=== PATIENT | female | born 1995 | race African-American/Black ===

== ENCOUNTER 2024-01-28 21:40 | Emergency (ER) | payer OTHER ==
[~2024-01-28] VITALS: Ht 177.8 cm; Wt 50.0 kg
[~2024-01-28 21:40] MED LIST: ACET500T58 PO; BACDST PO; ZOFR4T PO
--- NOTE | 2024-01-28 22:04 | ED.PDOC ---
GI ASSESSMENT HPI Comments 28 year old female who came to ER for abdominal pain. Patient states as of 3:00 p.m., she developed right lower quadrant abdominal pain, aching, sharp, constant, tender to touch, associated with bouts of nausea, vomiting, and loose nonbloody diarrhea. Patient denies any history of abdominal surgeries. Denies any possibility of due to her control pills. Chief Complaint: Abdominal Pain Time Seen by MD: 22:01 Primary Care Provider: UNKNOWN Reviewed Notes: Nurses Notes Allergies: Coded Allergies: NO KNOWN ALLERGIES (Unverified , 09/29/23) Home Meds Active Scripts Acetaminophen (Acetaminophen) 500 Mg Tab, 500 MG PO Q4HPRN, #30 TAB 0 Refills Prov:SHIRA PARKER 09/29/23 Ondansetron Odt 4MG Tab (ZOFRAN PO) 4 Mg Tb, 4 MG PO Q8HP PRN, #14 TAB 0 Refills ODT TAB-DISSOLVE IN MOUTH, THEN SWALLOW Prov:SHIRA PARKER 09/29/23 Sulfamethoxazole W/Trimethopri (Bactrim Ds Tablet) 1 Tab Tb, 1 TAB PO BID for 7 Days, #14 TAB 0 Refills Prov:SHIRA PARKER 09/29/23 Information Source: Patient Mode of Arrival: Ambulatory Timing: Hours Duration: Since onset Prehospital treatment: None Quality: Aching Vomitus: Watery Stool: Loose, Watery Severity: Moderate Recent: None Recent Hx of: None Pain Location: RLQ Modifying Factors: Nothing Associated sign and symptoms: Nausea, Vomiting, Diarrhea, Abdominal Pain Past Medical History PAST MEDICAL HISTORY: Denies Surgical History: Denies all surgeries PUPPY TRAINER History: Denies all PUPPY TRAINER Hx Family History Family History: Reviewed,noncontributory to illness Social History Smoker: Non-Smoker Alcohol: Denies ETOH Use Drugs: Denies Drug Use Lives In: Home Constitutional: denies: chills, diaphoresis, fatigue, fever, malaise, sweats, weakness, others EENTM: denies: blurred vision, double vision, ear bleeding, ear discharge, ear drainage, ear pain, ear ringing, eye pain, eye redness, hearing loss, mouth pain, mouth swelling, nasal discharge, nose bleeding, nose congestion, nose pain, photophobia, tearing, throat pain, throat swelling, voice changes, others Respiratory: denies: cough, hemoptysis, orthopnea, SOB at rest, shortness of breath, SOB with excertion, stridor, wheezing, others Cardiovascular: denies: chest pain, dizzy spells, diaphoresis, Dyspnea on exertion, edema, irregular heart beat, left arm pain, lightheadedness, palpitations, PND, syncope, others Gastrointestinal: reports: abdominal pain, diarrhea, nausea, vomiting; denies: abdomen distended, blood streaked bowels, constipated, dysphagia, difficulty swallowing, hematemesis, melena, poor appetite, poor fluid intake, rectal bleeding, rectal pain, others Genitourinary: denies: abnormal vagina bleeding, burning, dyspareunia, dysuria, flank pain, frequency, hematuria, incontinence, pain, , vagina disc harge, urgency, others Neurological: denies: dizziness, fainting, headache, left sided numbness, left sided weakness, numbness, paresthesia, pre-existing deficit, right sided numbness, right sided weakness, seizure, speech problems, tingling, tremors, weakness, others Musculoskeletal: denies: back pain, gout, joint pain, joint swelling, muscle pain, muscle stiffness, neck pain, others Integumetry: denies: bruises, change in color, change in hair/nails, dryness, laceration, lesions, lumps, rash, wounds, others Allergic/Immunocompromised: denies: Difficulty Healing, Frequent Infections, Hives, Itching, others Hematologic/Lymphatic: denies: anemia, blood clots, easy bleeding, easy bruising, swollen glands, others Endocrine: denies: excessive hunger, excessive sweating, excessive thirst, excessive urination, flushing, intolerance to cold, intolerance to heat, unexplained weight gain, unexplained weight loss, others Psychiatric: denies: anxiety, bipolar disorder, depression, hopeless, panic disorder, schizophrenia, sleepless, suicidal, others Physical Exam General Appearance: No Apparent Distress, Normal HEENT: Normal ENT Inspection, Pharynx Normal, TMs Normal Neck: Full Range of Motion, Non-Tender, Normal, Normal Inspection Respiratory: Chest Non-Tender, Lungs Clear, No Accessory Muscle Use, No Respiratory Distress, Normal Breath Sounds Cardiovascular: No Edema, No JVD, No Murmur, No Gallop, Normal Peripheral Pulses, Regular Rate/Rhythm Breast Exam: Deferred Gastrointestinal: No Organomegaly, No Pulsatile Mass, Normal Bowel Sounds, RLQ, Soft, Tenderness Genitalia: Deferred Pelvic: Deferred Rectal: Deferred Extremities: No calf tenderness, Normal capillary refill, Normal inspection, Normal range of motion, Non-tender, No pedal edema Musculoskeletal : Apperance: Normal Neurologic: Alert, certified pesticide applicator II-XII nml as Tested, No Motor Deficits, Normal Affect, Normal Mood, No Sensory Deficits Cerebellar Function: Normal Reflexes: Normal Skin: Dry, Normal Color, Warm Lymphatic: No Adenopathy Was a procedure done? Was a procedure done?: No GI differential Dx Differential Diagnosis: Appendicitis, Cholecystitis, Diverticular disease, Gastritis/PUD, Gastroenteritis, Ovarian cyst/torsion, Pancreatitis, UTI, Urolithiasis X-Ray, Labs, Meds, VS Vital Signs Date Time Temp Pulse Resp B/P (MAP) Pulse Ox O2 Delivery O2 Flow Rate FiO2 01/28/24 23:49 98.5 72 13 100/66 (77) 100 98.5 01/28/24 23:49 72 13 100 Room Air 01/28/24 23:44 72 13 100/66 01/28/24 21:40 98.4 80 18 121/75 (90) 99 Lab Test 01/28/24 22:20 01/28/24 21:51 Range/Units White Blood Count 11.1 H 4.4-10.8 10^3/uL Red Blood Count 4.43 4.0-5.20 10^6/uL Hemoglobin 13.1 12.2-16.2 g/dL Hematocrit 40.6 36.0-46.0 % Mean Corpuscular Volume 91.8 80.0-100.0 fL Mean Corpuscular Hemoglobin 29.7 28.0-32.0 pg Mean Corpuscular Hemoglobin Concent 32.3 32.0-36.0 g/dL Red Cell Distribution Width 15.1 H 11.8-14.3 % Platelet Count 508 H 140-450 10^3/uL Mean Platelet Volume 7.9 6.9-10.8 fL Neutrophils (%) (Auto) 76.8 37.0-80.0 % Lymphocytes (%) (Auto) 12.7 10.0-50.0 % Monocytes (%) (Auto) 8.6 0.0-12.0 % Eosinophils (%) (Auto) 1.6 0.0-7.0 % Basophils (%) (Auto) 0.3 0.0-2.0 % Neutrophils # (Auto) 8.5 1.6-8.6 10 ^3/uL Lymphocytes # (Auto) 1.4 0.4-5.4 10 ^3/uL Monocytes # (Auto) 1.0 0-1.3 10 ^3/uL Eosinophils # (Auto) 0.2 0-0.8 10 ^3/uL Basophils # (Auto) 0 0-0.2 10 ^3/uL Nucleated Red Blood Cells 0.0 % Sodium Level 140 136-145 mmol/L Potassium Level 3.5 3.5-5.1 mmol/L Chloride Level 108 H 98-107 mmol/L Carbon Dioxide Level 24 20-31 mmol/L Anion Gap 8 5-15 Blood Urea Nitrogen < 5 L 9-23 mg/dL Creatinine 0.81 0.550-1.02 mg/dL Glomerular Filtration Rate Calc 101 >90 mL/min BUN/Creatinine Ratio 6.2 L 10.0-20.0 Serum Glucose 117 H 74-106 mg/dL Calcium Level 9.9 8.7-10.4 mg/dL Total Bilirubin 0.8 0.2-1.0 mg/dL Aspartate Amino Transferase (AST) 14 13-40 U/L Alanine Aminotransferase (ALT) < 9 7-40 U/L Alkaline Phosphatase 63 46-116 U/L Total Protein 7.2 5.7-8.2 g/dL Albumin 4.4 3.2-4.8 g/dL Lipase 28 12-53 U/L Urine Color Dark-yellow Yellow Urine Clarity Clear Clear Urine pH 5.5 5.0-9.0 Urine Specific [place] 1.006 1.001-1.035 Urine Protein Negative Negative Urine Ketones Negative Negative Urine Blood 1+ H Negative /uL Urine Nitrite 1+ H Negative Urine Bilirubin Negative Negative Urine Urobilinogen Normal Negative mg/dL Urine Leukocyte Esterase Trace Negative /uL Urine RBC 3 0 - 4 /hpf Urine WBC 2 0 - 5 /hpf Urine Squamous Epithelial Cells Few <5 /hpf Urine Bacteria None seen None Seen /hpf Urine Glucose Normal Normal mg/dL Urine Test Negative Negative Current Medications Medications (Trade) Dose Ordered Sig/Rika Route Start Time Stop Time Status Last Admin Sodium Chloride 1,000 ml @ 1,000 mls/hr Q1H ONCE IV 01/28/24 22:00 01/28/24 22:59 DC 01/28/24 23:50 Ondansetron HCl (Zofran) 4 mg ONCE ONCE IV 01/28/24 22:00 01/28/24 22:01 DC 01/28/24 23:50 Time of 1ST Reevaluation: 21:56 Reevaluation 1ST: Unchanged Patient Education/Counseling: Diagnosis, Treatment Family Education/Counseling: No Family Present Departure 1 Departure Time of Disposition: 04:47 (Patient with a large right ovarian cyst and some white cells and nitrites in her urine. Will cover patient with antibiotics and discharge with outpatient ob followup.) Impression: Primary Impression: Adnexal cyst Additional Impression: UTI (urinary tract infection) Qualified Codes: N30.00 - Acute cystitis without hematuria Disposition: 01 HOME / SELF CARE / HOMELESS Condition: Stable Referrals: BAILEY LEMA DO Additional Instructions: You have a large right ovarian cyst. You were referred to [facility] for further workup. Please call for an appointment. You also have a urinary tract infection. You were prescribed antibiotics. Please take as directed. For pain you can take the followinam: Ibuprofen 400mg with food Noon: Acetaminophen 1000mg 4pm: Ibuprofen 400mg with food 8pm: Acetaminophen 1000mg You should follow up with your regular doctor within one week to ensure you are doing better. If your symptoms worsen or you have any other concerns then please return to the ER. Discharged With: Self Critical Care Note Critical Care Time?: No Stability Stability form required: No Heart Score Heart Score: Heart Score Response (Comments) Value History N/A 0 EKG N/A 0 Age N/A 0 Risk Factors N/A 0 Troponin N/A 0 Total 0 I personally scribed for MILAGROS ESPINOZA MD ([email or web address]) on 01/28/24 at 22:03. Electr onically submitted by Jose Yang ([email or web address]). MILAGROS ESPINOZA MD Jan 28, 2024 22:03
[2024-01-28 22:40] LABS: Eosinophils # (auto) 0.2 10 ^3/uL (0-0.8); Hematocrit 40.6 % (36.0-46.0); Hemoglobin 13.1 g/dL (12.2-16.2); Mean Corpuscular Hgb Conc. 32.3 g/dL (32.0-36.0); Neutrophils % (auto) 76.8 % (37.0-80.0); Red Blood Cells 4.43 10^6/uL (4.0-5.20)
[2024-01-28 22:42] LABS: Basophils # (auto) 0 10 ^3/uL (0-0.2); Basophils % (auto) 0.3 % (0.0-2.0); Eosinophils % (auto) 1.6 % (0.0-7.0); Lymphocytes # (auto) 1.4 10 ^3/uL (0.4-5.4); Lymphocytes % (auto) 12.7 % (10.0-50.0); Mean Corpuscular Hemoglobin 29.7 pg (28.0-32.0); Mean Corpuscular Volume 91.8 fL (80.0-100.0); Monocytes % (auto) 8.6 % (0.0-12.0); Neutrophils # (auto) 8.5 10 ^3/uL (1.6-8.6); Platelet Count (auto) 508 10^3/uL (140-450); Red Cell Distribution Width 15.1 % (11.8-14.3); White Blood Cell 11.1 10^3/uL (4.4-10.8)
[2024-01-28 22:43] LABS: Urine Bacteria None Seen /hpf (None Seen)
[2024-01-28 22:57] LABS: Albumin 4.4 g/dL (3.2-4.8); Alkaline Phosphatase 63 U/L (46-116); Anion Gap 8 (5-15); Aspartate Aminotransferase 14 U/L (13-40); Bilirubin, Total 0.8 mg/dL (0.2-1.0); Calcium 9.9 mg/dL (8.7-10.4); Carbon Dioxide 24 mmol/L (20-31); Potassium 3.5 mmol/L (3.5-5.1); Sodium 140 mmol/L (136-145); Total Protein 7.2 g/dL (5.7-8.2)
[2024-01-28 22:59] LABS: Alanine Aminotransferase < 9 U/L (7-40); BUN/Creatinine Ratio 6.2 (10.0-20.0); Blood Urea Nitrogen < 5 mg/dL (9-23); Chloride 108 mmol/L (98-107); Glucose 117 mg/dL (74-106)
[2024-01-28 22:59] LABS: Urine Blood 1+ /uL (Negative); Urine Clarity Clear (Clear); Urine Color Dark-Yellow (Yellow); Urine Protein, UAD Negative (Negative); Urine Specific Gravity 1.006 (1.001-1.035); Urine Urobilinogen Normal (Negative); Urine WBC 2 /hpf (0 - 5); Urine pH 5.5 (5.0-9.0)
[2024-01-28] MEDS: MORPHINE SULFATE 4 MG/ML SYR/VIAL IV ONE (23:44)
[2024-01-28] MEDS: ONDANSETRON HCL 4 MG/2 ML VIAL IV ONE (23:50)
[2024-01-28] MEDS: SODIUM CHLORIDE 0.9% 1,000 ML IV ONE (23:50)
[2024-01-29] MEDS: IOHEXOL 300 MG/ML 100ML BOTTLE IJ ONE (00:43)
[2024-01-29 01:16] LABS: Lipase 28 U/L (12-53)
--- NOTE | 2024-01-29 04:40 | DVH ---
Exam: CT CT AB PEL WITH IV CON ONLY History: rlq pain COMPARISON: None Technique: Multidetector spiral CT of the abdomen and pelvis was performed from lung bases to pubic s ymphysis. Intravenous contrast was administered during this examination. Portal venous imaging was obtained. Axial, coronal and sagittal multiplanar reformats were performed by the technologist on a separate workstation. Radiation Dose : 1. Abdomen/Pelvis: CTDIvol 5.1 mGy, DLP 274 mGy*cm. Findings: Lung Bases: No acute or significant lung base finding. Normal heart size. No pleural or pericardial effusion. Liver: The liver is normal in size. No focal lesions. Normal hepatic vascular enhancement. Gallbladder and Biliary Tree: Unremarkable Spleen: Unremarkable Pancreas: The pancreas is normal in appearance without focal lesions or abnormal enhancement. Adrenal Glands: Unremarkable Kidneys: No hydronephrosis. Bladder: Unremarkable Bowel: The stomach is grossly normal in appearance. Small bowel and colon are normal in caliber and d istribution. The appendix is not visualized; however, no secondary findings of acute appendicitis id entified. Ascites: Absent Lymphadenopathy: No mesenteric, retroperitoneal or periportal lymphadenopathy. Abdominal Wall and Mesentery: Unremarkable. Vasculature: The visualized abdominal aorta is normal in size and caliber. Abdominal and pelvic vess els demonstrate normal enhancement. Pelvic Organs: Right adnexal cystic structure measures 7.6 cm. Musculoskeletal: No aggressive focal bony lesions, acute fractures or dislocation. IMPRESSION: Right adnexal cystic structure measures 7.6 cm. This could be further evaluated with ultrasound if cl inically indicated. Radiation optimization: All CT scans at this facility use at least one of these dose optimization karmen hniques: automated exposure control mA and/or kV adjustment per patient size (includes targeted exam s where dose is matched to clinical indication) or iterative reconstruction.
[2024-01-29] MEDS: cefTRIAXone 1GM/50ML D5W 50 ML IV ONE (04:45)
[2024-01-29] MEDS ORDERED: CEFD300C2 PO (04:52)
[2024-01-29 05:23] VITALS: BP 105/71; PULSE 70; RESP 16; TEMP 98.1; O2SAT 100
== END 2024-01-29 05:25 | disposition home or self-care (01) ==
LOC: ER 21:40
DX: N83.291 Other ovarian cyst, right side (principal); N39.0 Urinary tract infection, site not specified; Z79.899 Other long term (current) drug therapy
CPT/HCPCS: 36415; 74177; 80053; 81001; 81025; 83690; 85025; 96361; 96374; 99285; J2405; J7030; Q9967

== ENCOUNTER 2024-04-29 10:08 | Emergency (ER) | payer OTHER ==
[~2024-04-29] VITALS: Ht 157.5 cm; Wt 47.5 kg
[~2024-04-29 10:08] MED LIST changes: +CEFD300C2 PO
[2024-04-29 10:43] VITALS: TEMP 97.9
[2024-04-29 10:44] VITALS: PULSE 70; RESP 16; O2SAT 100
[2024-04-29 11:06] LABS: Urine Bacteria FEW /hpf (None Seen); Urine Blood 1+ /uL (Negative); Urine Clarity Clear (Clear); Urine Color Light-Yellow (Yellow); Urine Protein, UAD Negative (Negative); Urine Specific Gravity 1.009 (1.001-1.035); Urine Squamous Epithelial Cell FEW /hpf (<5); Urine Urobilinogen Normal (Negative); Urine WBC 1 /HPF (0-5)
[2024-04-29] MEDS: SODIUM CHLORIDE 0.9% 1,000 ML IV ONE (11:11)
[2024-04-29] MEDS: ONDANSETRON HCL 4 MG/2 ML VIAL IV ONE ×2 (11:11→13:37)
[2024-04-29] MEDS: MORPHINE SULFATE 4 MG/ML SYR/VIAL IV ONE (11:13)
[2024-04-29 11:15] LABS: Eosinophils # (auto) 0.1 10 ^3/uL (0-0.8); Hemoglobin 12.7 g/dL (12.2-16.2); Mean Corpuscular Volume 89.3 fL (80.0-100.0)
[2024-04-29 11:17] LABS: Basophils # (auto) 0.1 10 ^3/uL (0-0.2); Basophils % (auto) 0.7 % (0.0-2.0); Eosinophils % (auto) 0.8 % (0.0-7.0); Lymphocytes % (auto) 27.5 % (10.0-50.0); Mean Corpuscular Hemoglobin 30.5 pg (28.0-32.0); Mean Corpuscular Hgb Conc. 34.2 g/dL (32.0-36.0); Monocytes # (auto) 0.3 10 ^3/uL (0-1.3); Monocytes % (auto) 4.4 % (0.0-12.0); Neutrophils # (auto) 4.9 10 ^3/uL (1.6-8.6); Neutrophils % (auto) 66.6 % (37.0-80.0); Nucleated Red Blood Cells % 0.1 %; Platelet Count (auto) 462 10^3/uL (140-450); Red Blood Cells 4.14 10^6/uL (4.0-5.20); Red Cell Distribution Width 14.5 % (11.8-14.3); White Blood Cell 7.4 10^3/uL (4.4-10.8)
[2024-04-29 11:32] LABS: Alanine Aminotransferase < 9 U/L (7-40); Albumin 4.7 g/dL (3.2-4.8); Alkaline Phosphatase 50 U/L (46-116); Anion Gap 10 (5-15); Aspartate Aminotransferase 18 U/L (13-40); BUN/Creatinine Ratio 8.1 (10.0-20.0); Bilirubin, Total 0.8 mg/dL (0.2-1.0); Blood Urea Nitrogen < 5 mg/dL (9-23); Carbon Dioxide 22 mmol/L (20-31); Chloride 110 mmol/L (98-107); Glucose 84 mg/dL (74-106); Potassium 3.5 mmol/L (3.5-5.1); Sodium 142 mmol/L (136-145); Total Protein 7.4 g/dL (5.7-8.2)
--- NOTE | 2024-04-29 11:49 | ED.PDOC ---
GI ASSESSMENT HPI Comments 28y F who presents to the ED for chief complaint of right lower quadrant abdominal pain. Pt states she has been having exacerbation of RLQ abdominal pain for the past 3 weeks with severe pain since last night. Pt states she has history of R ovarian cyst measuring 7 cm and localizes the pain to the same area. Pt states the pain is 10/10, non-radiating, is exacerbated with movement and palpation, no relieving factors. Pt states the pain was so severe she was unable to sleep last night and despite taking otc ibuprofen and Tylenol, the pain has persisted. Pt states her OB dx her with ovarian cyst and states she is waiting appt with surgeon for possible removal of her cyst. Pt states she called OB and was told to come to the ED if the pain persisted. Pt otherwise in the ED, states she is feeling nauseous but denies any other symptoms. Pt states she is currently not on her menstrual cycle. Pt otherwise has noted stable vitals with BP 123/84 and temp of 98.7 and heart rate of 75. Pt otherwise denies any other symptoms at this time. Chief Complaint: Abdominal Pain Time Seen by MD: 11:45 Primary Care Provider: UNKNOWN Reviewed Notes: Medications, Allergies Allergies: Coded Allergies: NO KNOWN ALLERGIES (Unverified , 09/29/23) Home Meds Active Scripts Cefdinir (Cefdinir) 300 Mg Cap, 1 CAP PO BID for 5 Days, #14 CAP Prov:MILAGROS ESPINOZA MD 01/29/24 Acetaminophen (Acetaminophen) 500 Mg Tab, 500 MG PO Q4HPRN, #30 TAB 0 Refills Prov:SHIRA PARKER 09/29/23 Ondansetron Odt 4MG Tab (ZOFRAN PO) 4 Mg Tb, 4 MG PO Q8HP PRN, #14 TAB 0 Refills ODT TAB-DISSOLVE IN MOUTH, THEN SWALLOW Prov:SHIRA PARKER 09/29/23 Sulfamethoxazole W/Trimethopri (Bactrim Ds Tablet) 1 Tab Tb, 1 TAB PO BID for 7 Days, #14 TAB 0 Refills Prov:SHIRA PARKER 09/29/23 Information Source: Patient Mode of Arrival: Wheelchair Brought in by: self Past Medical History Past Medical History (Other): R ovarian cyst Surgical History: Denies all surgeries [employer] History: Ovarian Cysts Family History Family History: Reviewed,noncontributory to illness Social History Smoker: Non-Smoker Alcohol: Denies ETOH Use Drugs: Denies Drug Use Lives In: Home Constitutional: denies: chills, diaphoresis, fatigue, fever, malaise, sweats, weakness, others EENTM: denies: blurred vision, double vision, ear bleeding, ear discharge, ear drainage, ear pain, ear ringing, eye pain, eye redness, hearing loss, mouth pain, mouth swelling, nasal discharge, nose bleeding, nose congestion, nose pain, photophobia, tearing, throat pain, throat swelling, voice changes, others Respiratory: denies: cough, hemoptysis, orthopnea, SOB at rest, shortness of breath, SOB with excertion, stridor, wheezing, others Cardiovascular: denies: chest pain, dizzy spells, diaphoresis, Dyspnea on exertion, edema, irregular heart beat, left arm pain, lightheadedness, palpit ations, PND, syncope, others Gastrointestinal: reports: abdominal pain, nausea; denies: abdomen distended, blood streaked bowels, constipated, diarrhea, dysphagia, difficulty swallowing, hematemesis, melena, poor appetite, poor fluid intake, rectal bleeding, rectal pain, vomiting, others Genitourinary: denies: abnormal vagina bleeding, burning, dyspareunia, dysuria, flank pain, frequency, hematuria, incontinence, pain, , vagina discharge, urgency, others Neurological: denies: dizziness, fainting, headache, left sided numbness, left sided weakness, numbness, paresthesia, pre-existing deficit, right sided numbness, right sided weakness, seizure, speech problems, tingling, tremors, weakness, others Musculoskeletal: denies: back pain, gout, joint pain, joint swelling, muscle pain, muscle stiffness, neck pain, others Integumetry: denies: bruises, change in color, change in hair/nails, dryness, laceration, lesions, lumps, rash, wounds, others Allergic/Immunocompromised: denies: Difficulty Healing, Frequent Infections, Hives, Itching, others Hematologic/Lymphatic: denies: anemia, blood clots, easy bleeding, easy bruising, swollen glands, others Endocrine: denies: excessive hunger, excessive sweating, excessive thirst, excessive urination, flushing, intolerance to cold, intolerance to heat, unexpl ained weight gain, unexplained weight loss, others Psychiatric: denies: anxiety, bipolar disorder, depression, hopeless, panic disorder, schizophrenia, sleepless, suicidal, others All Other Systems: Reviewed and Negative Physical Exam General Appearance: Mild Distress HEENT: PERRL/EOMI Neck: Full Range of Motion, Normal Inspection Respiratory: Lungs Clear, No Accessory Muscle Use, No Respiratory Distress, Normal Breath Sounds Cardiovascular: No Edema, No JVD, Regular Rate/Rhythm Breast Exam: Deferred Gastrointestinal: RLQ, Tenderness, Other (Right lower quadrant tenderness to percussion and palpation. No rebound or guarding.) Genitalia: Deferred Pelvic: Deferred Rectal: Deferred Extremities: Normal inspection, Normal range of motion, Non-tender, No pedal edema Neurologic: Alert (Oriented x4), Normal Affect, Normal Mood, Other (Ambulatory. No gross focal deficit.) Cerebellar Function: NOT DONE Reflexes: NOT DONE Skin: Dry, Normal Color, Warm Lymphatic: NOT DONE Was a procedure done? Was a procedure done?: No GI differential Dx Differential Diagnosis: Appendicitis, Bowel Obstruction, Diverticular disease, Ectopic , Gastroenteritis, Inflammatory BD, Ovarian cyst/torsion, UTI, Urolithiasis, Impaction, Stress Ulcer, Kidney Stone X-Ray, Labs, Meds, VS Vital Signs Date Time Temp Pulse Resp B/P (MAP) Pulse Ox O2 Delivery O2 Flow Rate FiO2 04/29/24 14:05 139/56 04/29/24 13:11 56 16 125/54 (77) 98 04/29/24 12:32 56 16 125/54 04/29/24 11:13 70 16 135/84 04/29/24 10:44 70 16 100 Room Air* 0 21 04/29/24 10:43 97.9 70 16 135/84 (101) 100 97.9 04/29/24 10:24 98.7 75 20 123/84 (97) 100 Lab Test 04/29/24 11:00 04/29/24 10:33 Range/Units White Blood Count 7.4 4.4-10.8 10^3/uL Red Blood Count 4.14 4.0-5.20 10^6/uL Hemoglobin 12.7 12.2-16.2 g/dL Hematocrit 37.0 36.0-46.0 % Mean Corpuscular Volume 89.3 80.0-100.0 fL Mean Corpuscular Hemoglobin 30.5 28.0-32.0 pg Mean Corpuscular Hemoglobin Concent 34.2 32.0-36.0 g/dL Red Cell Distribution Width 14.5 H 11.8-14.3 % Platelet Count 462 H 140-450 10^3/uL Mean Platelet Volume 7.7 6.9-10.8 fL Neutrophils (%) (Auto) 66.6 37.0-80.0 % Lymphocytes (%) (Auto) 27.5 10.0-50.0 % Monocytes (%) (Auto) 4.4 0.0-12.0 % Eosinophils (%) (Auto) 0.8 0.0-7.0 % Basophils (%) (Auto) 0.7 0.0-2.0 % Neutrophils # (Auto) 4.9 1.6-8.6 10 ^3/uL Lymphocytes # (Auto) 2.0 0.4-5.4 10 ^3/uL Monocytes # (Auto) 0.3 0-1.3 10 ^3/uL Eosinophils # (Auto) 0.1 0-0.8 10 ^3/uL Basophils # (Auto) 0.1 0-0.2 10 ^3/uL Nucleated Red Blood Cells 0.1 % Sodium Level 142 136-145 mmol/L Potassium Level 3.5 3.5-5.1 mmol/L Chloride Level 110 H 98-107 mmol/L Carbon Dioxide Level 22 20-31 mmol/L Anion Gap 10 5-15 Blood Urea Nitrogen < 5 L 9-23 mg/dL Creatinine 0.62 0.550-1.02 mg/dL Glomerular Filtration Rate Calc 124 >90 mL/min BUN/Creatinine Ratio 8.1 L 10.0-20.0 Serum Glucose 84 74-106 mg/dL Calcium Level 10.0 8.7-10.4 mg/dL Total Bilirubin 0.8 0.2-1.0 mg/dL Aspartate Amino Transferase (AST) 18 13-40 U/L Alanine Aminotransferase (ALT) < 9 7-40 U/L Alkaline Phosphatase 50 46-116 U/L Total Protein 7.4 5.7-8.2 g/dL Albumin 4.7 3.2-4.8 g/dL Beta HCG, Quantitative < 1.5 L 1.5-4.2 mIU/mL Urine Color Light-yellow Yellow Urine Clarity Clear Clear Urine pH 6.0 5.0-9.0 Urine Specific [place] 1.009 1.001-1.035 Urine Protein Negative Negative Urine Ketones Negative Negative Urine Blood 1+ H Negative /uL Urine Nitrite Negative Negative Urine Bilirubin Negative Negative Urine Urobilinogen Normal Negative mg/dL Urine Leukocyte Esterase Negative Negative /uL Urine RBC 3 0 - 4 /hpf Urine Microscopic WBC 1 0-5 /HPF Urine Squamous Epithelial Cells Few <5 /hpf Urine Bacteria Few H None Seen /hpf Urine Glucose Normal Normal mg/dL Current Medications Medications (Trade) Dose Ordered Sig/Rika Route Start Time Stop Time Status Last Admin Morphine Sulfate 4 mg ONCE ONCE IV 04/29/24 11:00 04/29/24 11:01 DC 04/29/24 11:13 Ondansetron HCl (Zofran) 4 mg ONCE ONCE IV 04/29/24 11:00 04/29/24 11:01 DC 04/29/24 11:11 Sodium Chloride 1,000 ml @ 1,000 mls/hr Q1H ONCE IV 04/29/24 11:00 04/29/24 11:59 DC 04/29/24 11:11 Ondansetron HCl (Zofran) 4 mg ONCE ONCE IV 04/29/24 13:30 04/29/24 13:31 DC 04/29/24 13:37 Fentanyl Citrate 12.5 mcg ONCE ONCE IV 04/29/24 13:45 04/29/24 13:49 DC 04/29/24 14:05 [place] [id number] Ph: [phone] DIAGNOSTIC IMAGING Diagnostic Imaging Report : [id number] Signed PATIENT: ARUN JAMISON KACCT: [id number] UNIT: [id number] : 1995 LOC: ER ROOM / BED: / AGE / SEX: 28 / F ADM STATUS: REG ER SERVICE 0000 ORDERING PHYSICIAN: DOTTIE BUCK MD PROCEDURE(s): PELTR - TRANSVAGINAL US NON OB REASON: RLQ DEENA, HX OV CYST, R/O TORSION ORDER NUMBER(s): [id number], ACCESSION NUMBER(s): [id number] INDICATION: RLQ pain, hx ov cyst r/o torsion TECHNIQUE: Multiple real-time grayscale transabdominal sonographic images along with color and duplex Doppler of the uterus and ovaries were obtained. COMPARISON: CT study on 01/29/2024 FINDINGS: Uterus measures 9.0 x 3.8 cm. Endometrial stripe measures 0.8 cm No free fluid in the cul-de-sac Right ovary measures 7.8 x 7.6 cm. Left ovary measures 6.2 x 3.9 cm Complex mass in the right ovary measures 7.2 x 5.5 x 7.4 cm . No torsion Anechoic mass in the left ovary measuring 3.5 x 2.5 x 3.1 cm. Impression: Normal uterus No free fluid in the cul-de-sac Right complex ovarian mass measures 7.2 x 5.5 x 7.4 cm, findings consistent with prior CT study No torsion ATED BY: RON BYRD MD DICTATED DATE/TIME: 04/29/24 1237 SIGNED BY: RON BYRD MD SIGNED DATE/TIME: 04/29/24 1237 CC: [place] [id number] Ph: [phone] DIAGNOSTIC IMAGING Diagnostic Imaging Report : [id number] Signed PATIENT: ARUN JAMISON KACCT: [id number] UNIT: [id number] : 1995 LOC: ER ROOM / BED: / AGE / SEX: 28 / F ADM STATUS: REG ER SERVICE 1050 ORDERING PHYSICIAN: DOTTIE BUCK MD PROCEDURE(s): PELUS - PELVIC REASON: RLQ pain, hx ov cyst r/o torsion ORDER NUMBER(s): [id number], ACCESSION NUMBER(s): [id number] INDICATION: RLQ pain, hx ov cyst r/o torsion TECHNIQUE: Multiple real-time grayscale transabdominal sonographic images along with color and duplex Doppler of the uterus and ovaries were obtained. COMPARISON: CT study on 01/29/2024 FINDINGS: Uterus measures 9.0 x 3.8 cm. Endometrial stripe measures 0.8 cm No free fluid in the cul-de-sac Right ovary measures 7.8 x 7.6 cm. Left ovary measures 6.2 x 3.9 cm Complex mass in the right ovary measures 7.2 x 5.5 x 7.4 cm . No torsion Anechoic mass in the left ovary measuring 3.5 x 2.5 x 3.1 cm. Impression: Normal uterus No free fluid in the cul-de-sac Right complex ovarian mass measures 7.2 x 5.5 x 7.4 cm, findings consistent with prior CT study No torsion ATED BY: RON BYRD MD DICTATED DATE/TIME: 04/29/24 1237 SIGNED BY: RON BYDR MD SIGNED DATE/TIME: 04/29/24 1237 CC: PROCEDURE(s): ABPL - CT AB PEL WO CON-NO ORAL OR IV REASON: RLQ pain nausea ORDER NUMBER(s): [id number], ACCESSION NUMBER(s): [id number] Exam: CT CT AB PEL WO CON-NO ORAL OR IV History: RLQ pain nausea Comparison Study: CT scan of the abdomen pelvis dated 01/29/2024. Technique: Multidetector spiral CT of the abdomen and pelvis was performed from lung bases to pubic symphysis. Imaging was performed without intravenous contrast. Coronal and sagittal multiplanar reformats were obtained from the axial data set by the technologist. Radiation Dose : 1. Abdomen/Pelvis: CTDIvol 5.1 mGy, DLP 221.31 mGy*cm. Findings: Evaluation of vasculature and solid organs is limited due to lack of intravenous contrast use. Lung Bases: Lung bases are clear. Visualized portions of the heart and pericardium are unremarkable. Liver: The liver is normal in size. No focal lesions. Gallbladder and Biliary Tree: The gallbladder contains hyperdensity which may reflect gallstones or sludge. No intrahepatic or extrahepatic biliary ductal dilatation. Spleen: Unremarkable Pancreas: Mild pancreatic ductal dilatation measuring 6 mm. Pancreas is otherwise not well evaluated in the absence of intravenous contrast. No sig nificant fat stranding. Adrenal Glands: Unremarkable Kidneys: Kidneys are unremarkable without calculi or hydronephrosis. GI tract: The stomach is grossly normal in appearance. No evidence of small bowel wall thickening or abnormal dilatation to suggest bowel obstruction. The colon is unremarkable. The appendix is visualized and is normal. Peritoneum/mesentery/retroperitoneum. No evidence of free intraperitoneal air. No ascites. No evidence of suspicious lymphadenopathy. Abdominal Wall: Unremarkable. Peritoneum: There is increased soft tissue density in the peritoneum anterior to the right adnexal cystic mass. Vasculature: The visualized abdominal aorta is normal in size and caliber. Evaluation of abdominal and pelvic vessels is limited due to lack of intravenous contrast. Urinary Bladder: Grossly unremarkable for degree of distention. Pelvic Organs: There is a 7. By 6.5 cm right adnexal mass with a thick wall measuring 5 mm. The appearance is similar to the prior study. Left adnexal cystic mass measures 2.7 x 2.7 cm. Unenhanced appearance of the uterus is grossly unremarkable. Musculoskeletal: No aggressive focal bony lesions, acute fractures or dislocation. IMPRESSION: 1. 7.6 cm right adnexal cystic mass similar to the prior CT. Please note that cystic ovarian malignancy is within the differential diagnostic considerations. 2. Nodularity of the peritoneum adjacent to the right adnexal cystic mass noted which may reflect edema however metastasis is not excluded. 3. Left adnexal cystic lesion measuring 2.7 cm. 4. Normal appendix. X-Ray, Labs, Meds, VS Comment 28-year-old female with a history of ovarian cysts presenting with severe right lower quadrant abdominal/pelvic pain and nausea Vitals unremarkable Exam remarkable for right lower quadrant tenderness to percussion and palpation. No rebound or guarding Rhythm strip independently interpreted by me: Sinus rhythm, rate 75, no ectopy. Pelvic ultrasound: Impression: Normal uterus No free fluid in the cul-de-sac Right complex ovarian mass measures 7.2 x 5.5 x 7.4 cm, findings consistent with prior CT study No torsion CT abdomen and pelvis IMPRESSION: 1. 7.6 cm right adnexal cystic mass similar to the prior CT. Please note that cystic ovarian malignancy is within the differential diagnostic considerations. 2. Nodularity of the peritoneum adjacent to the right adnexal cystic mass noted which may reflect edema however metastasis is not excluded. 3. Left adnexal cystic lesion measuring 2.7 cm. 4. Normal appendix. CBC, metabolic panel, hCG and UA unremarkable for any abnormality of acute significance Patient treated with the following in the ED: 1 L 0.9 normal saline IV bolus, morphine 4 mg IV, Zofran 4 mg IV x2, fentanyl 12.5 mcg IV On re-evaluation after morphine, patient states the pain was transiently relieved, however is returning and she still feels nausea. [id number] Dr. Walton was consulted and will evaluate the patient in the ED. Dr. Walton did not feel the patient required emergent surgery. He recommended pain and nausea control and outpatient follow-up with her OBGYN for elective outpatient surgery. I offered hospitalization for pain control, however the patient declined, stating she would prefer to go home with a prescription for pain meds and follow-up with her OBGYN as an outpatient. Rx [place], ibuprofen, Zofran Time of 1ST Reevaluation: 12:15 Reevaluation 1ST: Unchanged Patient Education/Counseling: Diagnosis, Treatment Family Education/Counseling: No Family Present Additional Information -Reviewed patient's previous visit(s): - The following tests were ordered, and results were reviewed by me: cbc, cmp, beta hcg, ua, ct abd pelvis non-con, pelvic us, - Additional information was gathered from interviewing the following independent Historian:pt - I reviewed and agreed with the following test results read by other provider: radiologist - I discussed treatments and results with medical personnel and: patient Comprehensive systems review obtained and negative except for what is stated in the HPI. Departure 1 Departure Time of Disposition: 13:42 Impression: Primary Impression: Right ovarian cyst Disposition: 01 HOME / SELF CARE / HOMELESS Condition: Stable Additional Instructions: Your blood and urine tests were unremarkable. Your ultrasound and CT showed a large right ovarian cyst. Have enclosed the reports below. I have prescribed pain and nausea medication. Follow-up with your OBGYN in 1-2 days for re- evaluation. Return to ER for persistent or worsening symptoms. [place] [address] Ph: [phone] DIAGNOSTIC IMAGING Diagnostic Imaging Report : [id number] Signed PATIENT: ARUN JAMISON ACCT: [id number] UNIT: [id number] : 1995 LOC: ER ROOM / BED: / AGE / SEX: 28 / F ADM STATUS: REG ER SERVICE 1050 ORDERING PHYSICIAN: DOTTIE BUCK MD PROCEDURE(s): PELUS - PELVIC REASON: RLQ pain, hx ov cyst r/o torsion ORDER NUMBER(s): [id number], ACCESSION NUMBER(s): [id number] INDICATION: RLQ pain, hx ov cyst r/o torsion TECHNIQUE: Multiple real-time grayscale transabdominal sonographic images along with color and duplex Doppler of the uterus and ovaries were obtained. COMPARISON: CT study on 01/29/2024 FINDINGS: Uterus measures 9.0 x 3.8 cm. Endometrial stripe measures 0.8 cm No free fluid in the cul-de-sac Right ovary measures 7.8 x 7.6 cm. Left ovary measures 6.2 x 3.9 cm Complex mass in the right ovary measures 7.2 x 5.5 x 7.4 cm . No torsion Anechoic mass in the left ovary measuring 3.5 x 2.5 x 3.1 cm. Impression: Normal uterus No free fluid in the cul-de-sac Right complex ovarian mass measures 7.2 x 5.5 x 7.4 cm, findings consistent with prior CT study No torsion ATED BY: RON BYRD MD DICTATED DATE/TIME: 04/29/[address] [place] [address] Ph: [phone] DIAGNOSTIC IMAGING Diagnostic Imaging Report : [id number] Signed PATIENT: ARUN JAMISON ACCT: [id number] UNIT: [id number] : 1995 LOC: ER ROOM / BED: / AGE / SEX: 28 / F ADM STATUS: REG ER SERVICE 1050 ORDERING PHYSICIAN: DOTTIE BUCK MD PROCEDURE(s): ABPL - CT AB PEL WO CON-NO ORAL OR IV REASON: RLQ pain nausea ORDER NUMBER(s): [id number], ACCESSION NUMBER(s): [id number] Exam: CT CT AB PEL WO CON-NO ORAL OR IV History: RLQ pain nausea Comparison Study: CT scan of the abdomen pelvis dated 01/29/2024. Technique: Multidetector spiral CT of the abdomen and pelvis was performed from lung bases to pubic symphysis. Imaging was performed without intravenous contrast. Coronal and sagittal multiplanar reformats were obtained from the axial data set by the technologist. Radiation Dose : 1. Abdomen/Pelvis: CTDIvol 5.1 mGy, DLP 221.31 mGy*cm. Findings: Evaluation of vasculature and solid organs is limited due to lack of intravenous contrast use. Lung Bases: Lung bases are clear. Visualized portions of the heart and pericardium are unremarkable. Liver: The liver is normal in size. No focal lesions. Gallbladder and Biliary Tree: The gallbladder contains hyperdensity which may reflect gallstones or sludge. No intrahepatic or extrahepatic biliary ductal dilatation. Spleen: Unremarkable Pancreas: Mild pancreatic ductal dilatation measuring 6 mm. Pancreas is otherwise not well evaluated in the absence of intravenous contrast. No sign ificant fat stranding. Adrenal Glands: Unremarkable Kidneys: Kidneys are unremarkable without calculi or hydronephrosis. GI tract: The stomach is grossly normal in appearance. No evidence of small bowel wall thickening or abnormal dilatation to suggest bowel obstruction. The colon is unremarkable. The appendix is visualized and is normal. Peritoneum/mesentery/retroperitoneum. No evidence of free intraperitoneal air. No ascites. No evidence of suspicious lymphadenopathy. Abdominal Wall: Unremarkable. Peritoneum: There is increased soft tissue density in the peritoneum anterior to the right adnexal cystic mass. Vasculature: The visualized abdominal aorta is normal in size and caliber. Evaluation of abdominal and pelvic vessels is limited due to lack of intravenous contrast. Urinary Bladder: Grossly unremarkable for degree of distention. Pelvic Organs: There is a 7. By 6.5 cm right adnexal mass with a thick wall measuring 5 mm. The appearance is similar to the prior study. Left adnexal cystic mass measures 2.7 x 2.7 cm. Unenhanced appearance of the uterus is grossly unremarkable. Musculoskeletal: No aggressive focal bony lesions, acute fractures or dislocation. IMPRESSION: 1. 7.6 cm right adnexal cystic mass similar to the prior CT. Please note that cystic ovarian malignancy is within the differential diagnostic considerations. 2. Nodularity of the peritoneum adjacent to the right adnexal cystic mass noted which may reflect edema however metastasis is not excluded. 3. Left adnexal cystic lesion measuring 2.7 cm. 4. Normal appendix. ATED BY: RAINER MCCALL MD DICTATED DATE/TIME: 04/29/24 1315 e-Prescriptions Ondansetron Odt 4MG Tab (ZOFRAN PO) 4 Mg Tb 4 MG PO TID PRN, #30 TAB prn nausea/vomiting ODT TAB-DISSOLVE IN MOUTH, THEN SWALLOW Prov: DOTTIE BUCK MD 04/29/24 Ibuprofen Micronized (Ibuprofen) 800 Mg Tab 800 MG PO Q8HP PRN, #30 TAB prn pain, take with food Prov: DOTTIE BUCK MD 04/29/24 Hydrocodone-Acetaminophen (Hydrocodone Bitartrate/AC 5-325 mg) 1 Tab Tab 1-2 TAB PO Q6HP PRN, #20 TAB prn breakthrough pain Prov: DOTTIE BUCK MD 04/29/24 Discharged With: Relative Critical Care Note Critical Care Time?: No Stability Stability form required: No Heart Score Heart Score: Heart Score Response (Comments) Value History N/A 0 EKG N/A 0 Age N/A 0 Risk Factors N/A 0 Troponin N/A 0 Total 0 I personally scribed for DOTTIE BUCK MD ([email or web address]) on 04/29/24 at 11:49. Electronically submitted by Pavan Evans ([facility]). I personally scribed for DOTTIE BUCK MD ([email or web address]) on 04/29/24 at 12:54. Electronically submitted by Pavan Evans ([facility]). DOTTIE BUCK MD Apr 29, 2024 11:49
--- NOTE | 2024-04-29 12:40 | DVH ---
INDICATION: RLQ pain, hx ov cyst r/o torsion TECHNIQUE: Multiple real-time grayscale transabdominal sonographic images along with color and duplex Doppler of the uterus and ovaries were obtained. COMPARISON: CT study on 01/29/2024 FINDINGS: Uterus measures 9.0 x 3.8 cm. Endometrial stripe measures 0.8 cm No free fluid in the cul-de-sac Right ovary measures 7.8 x 7.6 cm. Left ovary measures 6.2 x 3.9 cm Complex mass in the right ovary measures 7.2 x 5.5 x 7.4 cm . No torsion Anechoic mass in the left ovary measuring 3.5 x 2.5 x 3.1 cm. Impression: Normal uterus No free fluid in the cul-de-sac Right complex ovarian mass measures 7.2 x 5.5 x 7.4 cm, findings consistent with prior CT study No torsion
--- NOTE | 2024-04-29 13:18 | DVH ---
Exam: CT CT AB PEL WO CON-NO ORAL OR IV History: RLQ pain nausea Comparison Study: CT scan of the abdomen pelvis dated 01/29/2024. Technique: Multidetector spiral CT of the abdomen and pelvis was performed from lung bases to pubic s ymphysis. Imaging was performed without intravenous contrast. Coronal and sagittal multiplanar reform ats were obtained from the axial data set by the technologist. Radiation Dose : 1. Abdomen/Pelvis: CTDIvol 5.1 mGy, DLP 221.31 mGy*cm. Findings: Evaluation of vasculature and solid organs is limited due to lack of intravenous contrast use. Lung Bases: Lung bases are clear. Visualized portions of the heart and pericardium are unremarkable. Liver: The liver is normal in size. No focal lesions. Gallbladder and Biliary Tree: The gallbladder contains hyperdensity which may reflect gallstones or s ludge. No intrahepatic or extrahepatic biliary ductal dilatation. Spleen: Unremarkable Pancreas: Mild pancreatic ductal dilatation measuring 6 mm. Pancreas is otherwise not well evaluated in the absence of intravenous contrast. No significant fat stranding. Adrenal Glands: Unremarkable Kidneys: Kidneys are unremarkable without calculi or hydronephrosis. GI tract: The stomach is grossly normal in appearance. No evidence of small bowel wall thickening or abnormal dilatation to suggest bowel obstruction. The colon is unremarkable. The appendix is visualiz ed and is normal. Peritoneum/mesentery/retroperitoneum. No evidence of free intraperitoneal air. No ascites. No evidenc e of suspicious lymphadenopathy. Abdominal Wall: Unremarkable. Peritoneum: There is increased soft tissue density in the peritoneum anterior to the right adnexal c ystic mass. Vasculature: The visualized abdominal aorta is normal in size and caliber. Evaluation of abdominal a nd pelvic vessels is limited due to lack of intravenous contrast. Urinary Bladder: Grossly unremarkable for degree of distention. Pelvic Organs: There is a 7. By 6.5 cm right adnexal mass with a thick wall measuring 5 mm. The appe arance is similar to the prior study. Left adnexal cystic mass measures 2.7 x 2.7 cm. Unenhanced connie earance of the uterus is grossly unremarkable. Musculoskeletal: No aggressive focal bony lesions, acute fractures or dislocation. IMPRESSION: 1. 7.6 cm right adnexal cystic mass similar to the prior CT. Please note that cystic ovarian malignan cy is within the differential diagnostic considerations. 2. Nodularity of the peritoneum adjacent to the right adnexal cystic mass noted which may reflect effie ma however metastasis is not excluded. 3. Left adnexal cystic lesion measuring 2.7 cm. 4. Normal appendix.
[2024-04-29] MEDS: fentaNYL CITRATE 100 MCG/2 ML VL IV ONE (14:05)
--- NOTE | 2024-04-29 14:40 | DVHINCON2 ---
Date of service: Apr 29, 2024 Referring Physician ER attending Reason for Consultation Patient having pelvic abdominal pain nausea weakness History of Present Illness History Source: Patient Exam Limitations: No limitations HPI Patient says she has been having this pain and feeling for months but got to the point where she was unstable getting up to walk so she came in for ER evaluation. Home Meds Active Scripts Cefdinir (Cefdinir) 300 Mg Cap, 1 CAP PO BID for 5 Days, #14 CAP Prov:MILAGROS ESPINOZA MD 01/29/24 Acetaminophen (Acetaminophen) 500 Mg Tab, 500 MG PO Q4HPRN, #30 TAB 0 Refills Prov:SHIRA PARKER 09/29/23 Ondansetron Odt 4MG Tab (ZOFRAN PO) 4 Mg Tb, 4 MG PO Q8HP PRN, #14 TAB 0 Refills ODT TAB-DISSOLVE IN MOUTH, THEN SWALLOW Prov:SHIRA PARKER 09/29/23 Sulfamethoxazole W/Trimethopri (Bactrim Ds Tablet) 1 Tab Tb, 1 TAB PO BID for 7 Days, #14 TAB 0 Refills Prov:SHIRA PARKER 09/29/23 Chief Complaint of Abdominal/F: Nausea Onset/Duration of Abd/Flank Pa: 1 week Location of Abdominal Onset: RUQ, LUQ, Suprapubic, Other (Diffuse lower quadrant pain patient states she has had loose stools on and off consistent with IBS) Abdominal Pain Radiation: No radiation Associated Symptoms of Abd/Fla: Weakness Timing of Abdominal Pain: Intermittent Past Medical History Cardiac: No pertinent Hx Pulmonary: No pertinent Hx Central Nervous System: No pertinent Hx GI: No pertinent Hx Hemotology/Oncology: No pertinent Hx Hepatobiliary: No pertinent Hx Psychiatric: No pertinent Hx Musculoskeletal: No pertinent Hx Rheumotologic: No pertinent Hx Infectious Disease: No peritnent Hx ENT: No pertinent Hx Renal/: No pertinent Hx Endocrine: No pertinent Hx Dermatology: No pertinent Hx Past Surgical History: Other (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) Family History: No pertinent Hx Review of Systems Constitutional: No symptom reported Ears, Nose, & Throat: No symptom reported Eyes: No symptom reported Pulmonary/Respiratory: No symptom reported Cardiovascular: No symptom reported Gastrointestinal: No symptom reported Genitourinary: No symptom reported Musculoskeletal: No symptom reported Skin: No symptom reported Psychiatric: No symptom reported Endocrine: No symptom reported Hemotologic/Lymphatic: No symptom reported H&P Exam Vital Signs Vital Signs Date Time Temp Pulse Resp B/P (MAP) Pulse Ox O2 Delivery O2 Flow Rate FiO2 04/29/24 14:05 139/56 04/29/24 13:11 56 16 98 04/29/24 10:44 Room Air* 0 21 04/29/24 10:43 97.9 97.9 General Appeara: Well developed, Well nourished, Normal Appearance Head Exam: Tenderness (No peritoneal signs diffuse stent tenderness positive bowel sounds) Pulmonary/Respiratory: Normal inspection Cardiovascular/Chest: Normal inspection Abdominal Exam: Other (Mild tenderness diffuse no peritoneal signs positive bowel sounds) Rectal Exam: Deferred Back Exam: Normal inspection Pelvic Exam: Not done [employer] Exam: Normal hearing, Normal speech Neuro/Mental St: Alert, Oriented Appearance: Appropriate appearance Thoughts/Psych: Normal thought pattern Skin Exam: Normal inspection Wounds None Labs/Xrays Labs Test 04/29/24 11:00 04/29/24 10:33 Range/Units White Blood Count 7.4 4.4-10.8 10^3/uL Red Blood Count 4.14 4.0-5.20 10^6/uL Hemoglobin 12.7 12.2-16.2 g/dL Hematocrit 37.0 36.0-46.0 % Mean Corpuscular Volume 89.3 80.0-100.0 fL Mean Corpuscular Hemoglobin 30.5 28.0-32.0 pg Mean Corpuscular Hemoglobin Concent 34.2 32.0-36.0 g/dL Red Cell Distribution Width 14.5 H 11.8-14.3 % Platelet Count 462 H 140-450 10^3/uL Mean Platelet Volume 7.7 6.9-10.8 fL Neutrophils (%) (Auto) 66.6 37.0-80.0 % Lymphocytes (%) (Auto) 27.5 10.0-50.0 % Monocytes (%) (Auto) 4.4 0.0-12.0 % Eosinophils (%) (Auto) 0.8 0.0-7.0 % Basophils (%) (Auto) 0.7 0.0-2.0 % Neutrophils # (Auto) 4.9 1.6-8.6 10 ^3/uL Lymphocytes # (Auto) 2.0 0.4-5.4 10 ^3/uL Monocytes # (Auto) 0.3 0-1.3 10 ^3/uL Eosinophils # (Auto) 0.1 0-0.8 10 ^3/uL Basophils # (Auto) 0.1 0-0.2 10 ^3/uL Nucleated Red Blood Cells 0.1 % Sodium Level 142 136-145 mmol/L Potassium Level 3.5 3.5-5.1 mmol/L Chloride Level 110 H 98-107 mmol/L Carbon Dioxide Level 22 20-31 mmol/L Anion Gap 10 5-15 Blood Urea Nitrogen < 5 L 9-23 mg/dL Creatinine 0.62 0.550-1.02 mg/dL Glomerular Filtration Rate Calc 124 >90 mL/min BUN/Creatinine Ratio 8.1 L 10.0-20.0 Serum Glucose 84 74-106 mg/dL Calcium Level 10.0 8.7-10.4 mg/dL Total Bilirubin 0.8 0.2-1.0 mg/dL Aspartate Amino Transferase (AST) 18 13-40 U/L Alanine Aminotransferase (ALT) < 9 7-40 U/L Alkaline Phosphatase 50 46-116 U/L Total Protein 7.4 5.7-8.2 g/dL Albumin 4.7 3.2-4.8 g/dL Beta HCG, Quantitative < 1.5 L 1.5-4.2 mIU/mL Urine Color Light-yellow Yellow Urine Clarity Clear Clear Urine pH 6.0 5.0-9.0 Urine Specific [place] 1.009 1.001-1.035 Urine Protein Negative Negative Urine Ketones Negative Negative Urine Blood 1+ H Negative /uL Urine Nitrite Negative Negative Urine Bilirubin Negative Negative Urine Urobilinogen Normal Negative mg/dL Urine Leukocyte Esterase Negative Negative /uL Urine RBC 3 0 - 4 /hpf Urine Microscopic WBC 1 0-5 /HPF Urine Squamous Epithelial Cells Few <5 /hpf Urine Bacteria Few H None Seen /hpf Urine Glucose Normal Normal mg/dL Assessment/Plan Primary Diagnosis This diffuse abdominopelvic pain large simple ovarian cyst no signs of torsion no acute abdomen at this time; no emergent surgery at this time. Right ovarian cystic mass 7 x 7 x 5 Admitting Diagnosis: Suspect patient may be developing a viral syndrome recommended hydration antiemetics Recommend she follow up with Eduardo JOVEL within the next 1-2 weeks for further evaluation treatment of ovarian cystic mass Plan Thank you for the opportunity to see your patient, Plan discussed with: Patient, Other (ER attending) IBBI CUNNINGHAM DO Apr 29, 2024 14:40
[2024-04-29] MEDS ORDERED: IBUP-1455 PO (15:38)
[2024-04-29] MEDS ORDERED: HYDR-4902 PO (15:38)
[2024-04-29] MEDS ORDERED: ZOFR4T PO (15:38)
[2024-04-29 15:43] VITALS: BP 139/56; PULSE 61; RESP 17; O2SAT 100
== END 2024-04-29 15:45 | disposition home or self-care (01) ==
LOC: ER 10:08
DX: N83.201 Unspecified ovarian cyst, right side (principal); R10.2 Pelvic and perineal pain; Z79.899 Other long term (current) drug therapy
CPT/HCPCS: 36415; 74176; 76830; 76856; 80053; 81001; 84702; 85025; 96361; 96374; 96375; 96376; 99285; J2270; J2405; J3010; J7030